=== PATIENT | female | born 2000 | race Caucasian/White ===

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

== ENCOUNTER 2019-10-25 17:47 | Emergency (ER) | payer BC ==
[2019-10-25 18:04] VITALS: BP 110/77
--- NOTE | 2019-10-25 18:26 | UC ---
Lower Extremity/Ankle HPI - HPI Summary HPI Summary: PATIENT REPORTS A HISTORY OF VARICOSE VEINS AND MULTIPLE EPISODES OF SUPERFICIAL THROMBOPHLEBITIS. STATES SHE NOTED A PROBABLE SUPERFICIAL THROMBUS IN HER LEFT ANTERIOR KNEE A COUPLE OF WEEKS AGO BUT THAT IT HAS BECOME MORE AND MORE PAINFUL. SHE IS CURRENTLY HAVING DIFFICULTY WEIGHTBEARING AND IS TEARFUL. HAS CALF PAIN AND IS CONCERNED ABOUT A DEEPER CLOT. - History of Current Complaint Chief Complaint: UCLowerExtremity Stated Complaint: LEG PAIN Time Seen by Provider: 10/25/19 18:11 Hx Obtained From: Patient Hx Last Menstrual Period: 3 weeks ago Onset/Duration: Gradual Onset, Lasting Weeks, Still Present Severity Initially: Moderate Severity Currently: Moderate Pain Intensity: 5 Pain Scale Used: 0-10 Numeric Aggravating Factor(s): Standing, Ambulation Alleviating Factor(s): Nothing Able to Bear Weight: Yes - Allergies/Home Medications Allergies/Adverse Reactions: Allergies Allergy/AdvReac Type Severity Reaction Status Date / Time fluticasone Allergy Hives Verified 10/25/19 19:16 [From Flovent Diskus] latex Allergy Eyes Verified 10/25/19 19:16 Itchy/Swollen/Red/Watery Home Medications: Home Medications NK [No Home Medications Reported] 10/25/19 [History Confirmed 10/25/19] PMH/Surg Hx/FS Hx/Imm Hx - Additional Past Medical History Additional PMH: VARICOSE VEINS/SUPERFICIAL THROMBOPHLEBITIS Respiratory History: Asthma Psychological History: Anxiety, Depression, Post Traumatic Stress Disorder - Surgical History Surgical History: None - Family History Family History: VARICOSE VEINS - MOM - Social History Alcohol Use: Occasionally Substance Use Type: None Smoking Status (MU): Never Smoked Tobacco Review of Systems All Other Systems Reviewed And Are Negative: Yes Constitutional: Positive: Negative Skin: Positive: Other - VARICOSITIES Respiratory: Positive: Negative Cardiovascular: Positive: Negative Gastrointestinal: Positive: Negative Musculoskeletal: Positive: Calf Tenderness Physical Exam Triage Information Reviewed: Yes Appearance: Well-Appearing, No Pain Distress, Well-Nourished Vital Signs: Initial Vital Signs Temp 98.6 F 10/25/19 18:00 Pulse 75 10/25/19 18:00 Resp 12 10/25/19 18:00 BP 110/77 10/25/19 18:00 Pulse Ox 100 10/25/19 18:00 Vital Signs Reviewed: Yes Eyes: Positive: Conjunctiva Clear ENT: Positive: Hearing grossly normal Neck: Positive: Supple Respiratory: Positive: No respiratory distress, No accessory muscle use Cardiovascular: Positive: Pulses Normal Abdomen Description: Positive: Soft Musculoskeletal: Positive: ROM Intact, No Edema, Other: - LEFT CALF TENDERNESS Neurological: Positive: Alert Psychological: Positive: Age Appropriate Behavior Skin: Positive: Other - TENDER, PALPABLE MASS LEFT ANTERIOR KNEE. VARICOSITIES LEFT LOWER LEG Lower Extremity Course/Dx - Course Course Of Treatment: PATIENT WITH A PROBABLE SUPERFICIAL THROMBOPHLEBITIS IN HER LEFT LEG. SHE DOES HAVE SOME CALF TENDERNESS AND IS TEARFUL AND CONCERNED ABOUT A DVT. SHE HAS HAD MULTIPLE EPISODES OF THROMBOPHLEBITIS AND HAS SIGNIFICANT VARICOSITIES. PATIENT REQUIRES A HIGHER LEVEL OF SERVICE THAN WAS AVAILABLE IN THE URGENT CARE. TO [facility] BY PR[facility] CAR. - Differential Dx/Diagnosis Provider Diagnosis: Left leg pain Discharge ED - Sign-Out/Discharge Documenting (check all that apply): Patient Departure All imaging exams completed and their final reports reviewed: No Studies - Discharge Plan Condition: Stable Disposition: TRANS HIGHER [facility] Patient Education Materials: Superficial Thrombophlebitis (ED) Referrals: [facility] [Outside] - 2 Weeks Additional Instructions: GIVEN YOUR HISTORY OF SUPERFICIAL THROMBOPHLEBITIS AND YOUR CURRENT CONCERN FOR DVT I RECOMMEND YOU GO DIRECTLY TO THE [facility] FROM HERE FOR FURTHER EVALUATION. YOU HAVE DECLINED TRANSFER TO THE ER BY AMBULANCE. BE ADVISED THAT BY NOT TRAVELING IN A MONITORED SETTING YOU COULD BE RISKING WORSENING OF YOUR CONDITION THAT COULD POSE A THREAT TO YOUR LIFE, HEALTH AND MEDICAL SAFETY. CALL THE NUMBER BELOW FOR ASSISTANCE IN ESTABLISHING WITH A PCP An additional resource available to assist in finding the appropriate physician for your health care needs is the [facility] ([facility]). You may contact them by calling [phone]. - Billing Disposition and Condition Condition: STABLE Disposition: Trans Higher Lvl of Care Fac
== END 2019-10-25 18:25 | disposition short-term general hospital (02) ==
LOC: UCEAST 17:47
DX: M79.605 Pain in left leg (principal); J45.909 Unspecified asthma, uncomplicated; I80.3 Phlebitis and thrombophlebitis of lower extremities, unspecified; I83.92 Asymptomatic varicose veins of left lower extremity; Z91.040 Latex allergy status; Z88.8 Allergy status to other drugs, medicaments and biological substances
CPT/HCPCS: 99212; G0463

== ENCOUNTER 2019-10-25 19:11 | Emergency (ER) | payer BC ==
--- NOTE | 2019-10-25 20:26 | ED ---
Lower Extremity - HPI Summary HPI Summary: Presents the emergency department today with a chief complaint of left calf pain and left posterior knee pain which is made worse with regulation and dorsiflexion of her foot. Patient endorses 6 out of 10 pain which began approximately 5 days ago. Patient has no edema or erythema or ecchymosis of the lower extremities. Patient is ambulatory. Patient denies any recent trauma. Patient does not take oral control. Patient states she has a family history of blood clots in she has had multiple"superficial blood clots." patient denies recently discharged travel, surgery, immobilization. - History of Current Complaint Chief Complaint: EDExtremityLower Stated Complaint: LEG PAIN SENT FROM Time Seen by Provider: 10/25/19 19:39 Hx Obtained From: Patient Hx Last Menstrual Period: 3 weeks ago Onset of Pain: Days Onset/Duration: Days Severity Initially: Moderate Severity Currently: Moderate Pain Intensity: 5 Pain Scale Used: 0-10 Numeric Timing: Constant Character Of Pain: Aching Associated Signs And Symptoms: Negative: Swelling, Redness, Bruising Aggravating Factor(s): Ambulation, Movement, Weight Bearing, Stairs Alleviating Factor(s): Rest Able to Bear Weight: Yes - Allergies/Home Medications Allergies/Adverse Reactions: Allergies Allergy/AdvReac Type Severity Reaction Status Date / Time fluticasone Allergy Hives Verified 10/25/19 19:16 [From Flovent Diskus] latex Allergy Eyes Verified 10/25/19 19:16 Itchy/Swollen/Red/Watery Home Medications: Home Medications NK [No Home Medications Reported] 10/25/19 [History Confirmed 10/25/19] PMH/Surg Hx/FS Hx/Imm Hx Respiratory History: Reports: Hx Asthma - SPORTS INDUCED GI History: Reports: Hx Irritable Bowel Psychiatric History: Reports: Hx Anxiety, Hx Depression Denies: Hx Eating Disorder, Hx of Violent Episodes Against Others - Immunization History Date of Tetanus Vaccine: up to date per mom Infectious Disease History: No Infectious Disease History: Denies: Traveled Outside the [place] in Last 30 Days - Family History Family History: VARICOSE VEINS - MOM - Social History Alcohol Use: Occasionally Substance Use Type: Reports: Other Substance Use Comment - Amount & Last Used: vape Smoking Status (MU): Former Smoker Review of Systems Constitutional: Negative Eyes: Negative ENT: Negative Cardiovascular: Negative Respiratory: Negative Gastrointestinal: Negative Genitourinary: Negative Positive: Arthralgia, Myalgia. Negative: Decreased ROM, Edema Skin: Negative Neurological/Mental Status: Negative Psychological: Normal All Other Systems Reviewed And Are Negative: Yes Physical Exam - Summary Physical Exam Summary: Patient has full range of motion of the knees and ankles bilaterally. Patient has 2+ dorsalis pedis pulses and 2+ posterior tibialis pulse. There is no evidence of ecchymosis, erythema, edema lower extremity. Patient worsens pain with dorsiflexion of the foot and palpation of the left calf. Triage Information Reviewed: Yes Vital Signs On Initial Exam: Initial Vitals Temp Pulse Resp BP Pulse Ox 98.9 F 99 15 119/67 99 10/25/19 19:14 10/25/19 19:14 10/25/19 19:14 10/25/19 19:14 10/25/19 19:14 Vital Signs Reviewed: Yes Appearance: Positive: Well-Appearing, No Pain Distress, Well-Nourished Skin: Positive: Warm, Skin Color Reflects Adequate Perfusion Eyes: Positive: EOMI, UMESH ENT: Positive: Hearing grossly normal Respiratory/Lung Sounds: Positive: Clear to Auscultation, Breath Sounds Present Cardiovascular: Positive: RRR, S1, S2 Abdomen Description: Positive: Nontender, Soft Bowel Sounds: Positive: Present Musculoskeletal: Positive: Strength/ROM Intact Neurological: Positive: Sensory/Motor Intact, Alert, Oriented to Person Place, Time, Normal Gait, Facial Symmetry, Speech Normal Psychiatric: Positive: Normal, Affect/Mood Appropriate AVPU Assessment: Alert Procedures - Sedation Patient Received Moderate/Deep Sedation with Procedure: No Diagnostics - Vital Signs Vital Signs Temp Pulse Resp BP Pulse Ox 10/25/19 19:14 98.9 F 99 15 119/67 99 - Laboratory Lab Statement: Any lab studies that have been ordered have been reviewed, and results considered in the medical decision making process. Lower Extremity Course/Dx - Course Course Of Treatment: Patient was evaluated in the emergency department today for left leg pain. Vitals noted and stable. Patient had full range of motion and was neurovascularly intact of the left lower treatment. Venous DVT study was done of the left leg which showed no evidence of DVT. Patient did not appear to be experiencing any acute medical pathology at this time. Patient Discharge to outpatient follow-up. - Diagnoses Differential Diagnosis/HQI/PQRI: Positive: Arthritis, DVT, Sprain, Strain Provider Diagnoses: Leg pain Discharge ED - Sign-Out/Discharge Documenting (check all that apply): Patient Departure - Discharge Plan Condition: Stable Disposition: HOME Patient Education Materials: Leg Pain (ED) Referrals: [facility] [Outside] - 4 Days No Primary Care Phys,NOPCP [Primary Care Provider] - Additional Instructions: You were seen in the emergency department today due to left leg pain. A Doppler study was done which showed no evidence of blood clot. I'm not sure what is causing your pain however I do not believe it is concerning. Please follow-up with [facility] in 4-5 days for further evaluation and management. Please return to this emergency Department immediately if you develop any new or worsening symptoms. Take ibuprofen 600mg every 6 hours for pain. - Billing Disposition and Condition Condition: STABLE Disposition: Home
[2019-10-25 20:53] VITALS: BP 102/68
== END 2019-10-25 20:52 | disposition home or self-care (01) ==
LOC: ED 19:11
DX: M79.662 Pain in left lower leg (principal); M25.562 Pain in left knee; Z88.8 Allergy status to other drugs, medicaments and biological substances; Z91.040 Latex allergy status; Z87.891 Personal history of nicotine dependence
CPT/HCPCS: 99281